=== PATIENT | male | born 1940 | race Caucasian/White ===

== ENCOUNTER 2019-09-16 11:12 | Observation (INO) ==
[2019-09-16] MEDS ORDERED: IOPAMIDOL 100 ML BOTTLE IV ONE (11:13)
[2019-09-16 11:26] LABS: POC Pro Time 11.5 sec (11.9-14.5)
[2019-09-16 11:27] LABS: POC Blood Urea Nitrogen 15 mg/dl (8-23); POC CO2 26 mmol/L (22-30); POC Calcium, Ionized 1.11 mmol/L (1.16-1.32); POC Chloride 104 mmol/L (96-108); POC Creatinine 0.8 mg/dl (0.7-1.2); POC Glucose, Random 117 mg/dL (70-105); POC Potassium 5.1 mmol/L (3.3-5.1); POC Sodium 141 mmol/L (133-145)
--- NOTE | 2019-09-16 11:41 | Cat Scan Report ---
CLINICAL INFORMATION: Code stroke COMPARISON: 05/08/2017 TECHNIQUE: 2.5 mm helical slices were obtained in the skull base to vertex. Following reconstruction, axial reformatted images were reviewed at bone and parenchymal windows. The exam was performed using radiation dose optimization techniques including, but not limited to, automated exposure control, adjustment of the mA and/or kV according to patient size and use of iterative reconstruction technique. FINDINGS: The ventricles, sulci, fissures, and cisterns are symmetrically enlarged compatible with mild age-related atrophy - no subdural hemorrhage or extra-axial fluid collection appreciated. Mild patchy chronic ischemic changes in the deep cerebral white matter, expected for age, are unchanged. A 6 mm remote lacunar infarct in the left superior cerebellum is again noted. There is no edema, hemorrhage or mass effect. Partial left mastoidectomy with cochlear implant electrode wires and battery pack over the left parietal calvaria appreciated no complication from surgery. IMPRESSION: Mild atrophy with chronic ischemic change in the deep cerebral white matter expected for age. 6 mm remote lacunar infarct left cerebellum seen - as before. There is no intracerebral hemorrhage, mass effect edema or other acute finding Interpreted and Authenticated by: Cristi Dorsey 09/16/19
[2019-09-16 12:07] LABS: Basophils # (Auto) 0.03 K/mcL (0.00-0.30); Basophils % (Auto) 0.6 % (0.0-2.0); Eosinophils # (Auto) 0.08 K/mcL (0.00-0.70); Eosinophils % (Auto) 1.6 % (0.0-7.0); Hematocrit 43.7 % (40.1-51.0); Hemoglobin 14.5 g/dL (13.7-17.5); Lymphocytes # (Auto) 1.61 K/mcL (1.50-4.80); Lymphocytes % (Auto) 32.2 % (15.5-49.0); Mean Cell Volume 86.5 fL (80.0-100.0); Mean Corpuscular HGB Conc 33.2 g/dL (31.0-36.0); Mean Platelet Volume 11.3 fL (7.4-10.4); Monocytes # (Auto) 0.33 K/mcL (0.10-0.90); Monocytes % (Auto) 6.6 % (1.0-12.0); Platelet Count 218 K/mcL (140-440); RBC 5.05 M/mcL (4.63-6.08); Red Cell Distribution Width 13.3 % (11.5-14.5)
--- NOTE | 2019-09-16 12:10 | Cat Scan Report ---
CLINICAL INFORMATION: Code stroke COMPARISON: None. TECHNIQUE: 80 cc of Isovue-370 were injected intravenously , and using SmartPrep to maximize cerebral arterial opacification, 0.625 mm helical slices were obtained from the skull base through the cerebral vertex. Following reconstruction , sagittal, coronal and axial reformatted images were processed and reviewed at multiple windows and levels. 3D volume rendered and MIP images were acquired at a independent workstation. The exam was performed using radiation dose optimization techniques including, but not limited to, automated exposure control, adjustment of the mA and/or kV according to patient size and use of iterative reconstruction technique. FINDINGS: The intracranial internal carotid, anterior and middle cerebral, intracranial vertebral, basilar both posterior cerebral arteries are well opacified and normal in contour and caliber. Superficial and deep cerebral veins and deep venous sinuses are patent. IMPRESSION: Normal Interpreted and Authenticated by: Cristi Dorsey 09/16/19
--- NOTE | 2019-09-16 12:15 | Emergency Department Note ---
Neuro HPI - General Chief Complaint: Stroke Symptoms Stated Complaint: stroke like symptoms Time Seen by Provider: 09/16/19 11:24 Source: family Mode of arrival: ambulatory Limitations: altered mental status - History of Present Illness HPI Narrative: This 79-year-old gentleman comes emergency room brought by his who reports that she met him at 11:00 at [facility] and he seemed confused not able to speak normally and seemed quite off. She had last seen him at the [facility] 12 noon yesterday. Patient went to the home of his son and [id number] and was there and seemed normal as late as 7:30 PM at which time I believe the son-in-law and [id number] went to bed. Patient got up this morning and somehow managed to drive himself to [facility] where he met his . This arrangement had been made via or through the [id number] last evening at 7:30 PM. Patient has a cochlear implant and according to it has been working and working quite well although she indicates that he does sometimes want to read lips. She reports that he seemed to ambulate well and fine. Later information was added patient's son or [id number] had last seen him at 7:30 PM and he was fine then. Even later information, may be 12:30 PM, information added that patient had been seen by a local friend with [id number]-cl-[id number] contact between 9 AM and 10:30 AM this morning. He was reported as completely normal then. On Anticoagulants: No - Related Data Home Medications: Home Medications Medication Instructions Recorded Confirmed ascorbic acid (vitamin C) 1,000 mg 1 g PO QDAY tab 11/06/17 09/16/19 tablet calcium carbonate 600 mg calcium 1,200 mg PO BID tab 11/06/17 09/16/19 (1,500 mg) tablet cholecalciferol (vitamin D3) 50 2,000 unit PO DAILY cap 11/06/17 09/16/19 mcg (2,000 unit) capsule acetaminophen 325 mg tablet See Rx Instructions PO .COMPLEX PRN 07/01/18 09/16/19 omega-3 fatty acids 1,000 mg 1,000 mg PO Q2D cap 07/01/18 09/16/19 capsule Simvastatin 10 mg PO QHS 09/16/19 09/16/19 Previous Rx's Medication Instructions Recorded omeprazole 20 mg tablet,delayed 20 mg PO QDAY #7 tab 08/04/19 release diclofenac sodium 1 % topical gel 2 g TOPICAL QID PRN #100 g 08/09/19 tamsulosin 0.4 mg capsule 0.4 mg PO HS #90 cap 09/14/19 Allergies/Adverse Reactions: Allergies Allergy/AdvReac Type Severity Reaction Status Date / Time Sulfa (Sulfonamide Allergy Intermediate Hives Verified 08/09/19 09:48 Antibiotics) milk Allergy Unknown Sore Verified 08/09/19 09:48 throat,tongue & lips dairy Allergy Unknown Unknown Uncoded 08/09/19 09:48 Past Medical History - Past Medical History Medical history: Reports: arthritis, hypertension, other (elevated PSA and large prostate) Surgical history ED: Reports: herniorrhaphy, knee replacement, orthopedic, other (foot), other (hydrocele) - Social History smoking status: Former smoker Physical Exam Limitations: altered mental status General appearance: alert, in no apparent distress, nontoxic Head: atraumatic, normocephalic Eye: Present: EOMI Neck: Present: trachea midline Chest: Present: symmetric chest wall rise Respiratory: Absent: respiratory distress, wheezes, stridor Cardiovascular: Present: regular rate, normal rhythm, bradycardia. Absent: systolic murmur, diastolic murmur Abdominal: Present: other (large, domed.) Extremities: Absent: pretibial edema, joint swelling Neurological: Present: alert Speech: Present: receptive aphasia, expressive aphasia Cranial nerves: EOM function (II, III, IV, ): Normal Cerebellar function: finger to nose: Normal, heel to krishna: Normal Cerebellar function: normal gait Motor strength - LUE: 4/5 Motor strength - RUE: 4/5 Motor strength - LLE: 4/5 Motor strength - RLE: 4/5 Psychiatric: Present: normal affect, normal mood Skin: Present: warm, dry Course Vital Signs Temperature 96.6 F L 09/16/19 11:13 Pulse Rate 56 L 09/16/19 11:13 Respiratory Rate 18 09/16/19 11:13 Blood Pressure 156/85 09/16/19 11:13 Pulse Oximetry (%) 93 09/16/19 11:13 Temperature 96.6 F L 09/16/19 11:13 Pulse Rate 44 L 09/16/19 12:45 Respiratory Rate 17 09/16/19 12:45 Blood Pressure 159/73 09/16/19 12:16 Pulse Oximetry (%) 97 09/16/19 12:45 Neuro Symptoms/Deficit - [facility] Narrative Medical decision making narrative: 11:11 AM - patient interviewed as best I was able and quickly sent to CT scan (code stroke). I spoke with his . She had last seen him at noon yesterday. Labs ordered. Will discuss with stroke neurologist. 11:24 AM - I spoke with Dr. Albert, stroke neurologist, who indicates that with the information at that time, no TPA indicated and recommended that the CT angiogram. He will review the CT of the head. 11:38 AM - CT report negative. 11:34 AM - EKGs demonstrates bradycardia with possible left axis deviation or borderline, sinus rhythm. Some mild inferior flattening/inversion. 12:15 PM - Dr. Albert also calls and reports that on the CT angio he is unable to find any large vessel occlusion. There may be some narrowing in a right branch off the MCA. He recommends aspirin, statin, admission for monitoring and echocardiogram and consider a monitor for 2 to 4 weeks and an MRI of the brain. Patient is not a candidate for an MRI because of his cochlear implant. If he is found to have atrial fibrillation he does not need a heart monitor long-term. He also recommends changing his anti-inflammatory to aspirin, reviewed his blood pressures, and request follow-up if the official report from the radiologist has other important findings. 12:50 PM - ABCD 2 score is 5 based on age, blood pressure, speech disturbance, duration a little over 60 minutes (2 points), and no hx of DM. With recommendation to be admitted, monitored, he finally agrees. Patient's again reports that he sometimes takes lisinopril. In the past did cause some hypotension and then lately he has been taking it every other day. He is not certain when he last took it it might of been this morning. At this point in time patient is interactive, speaking in full sentences easily and well and seems to understand everything that is said. He does not have a clear memory of his behavior when he arrived. He does not remember having difficulties speaking. He is able to hear easily and well but with mildly loud voice on the side of his cochlear implant (left). Discussion of his CODE STATUS concludes to be a full code but with time limited considerations. He has a directive to physicians or end-of-life document that includes not wishing to have prolonging measures. This is not currently available. 1:33 PM - spoke with hospitalist. Data reviewed. I will review with the stroke neurologist the CT angios of the neck that shows an ulcerated plaque. 1:39 PM - I spoke with Dr. Vanegas, who indicates that in light of not being able to do the MRI a CT scan is not really necessary since it would not change and is not clinically indicated. He recommends high-dose statin, aspirin but the dose could be variable depending on which literature 1 believes and, have him stop his ibuprofen, do the monitoring for cardiac dysrhythmia as a source, and ultrasound of the heart. 1:45 PM - I spoke with hospitalist, Dr. Edgar Smith, who is willing to accept this patient. Also of note is patient's bradycardia which information was texted to the hospitalist. - Lab Data Result diagrams: 09/16/19 11:16 09/16/19 11:16 Lab Results 09/16/19 09/16/19 09/16/19 Range/Units 11:16 11:16 11:16 WBC 5.0 (4.50-11.00) K/mcL RBC 5.05 (4.63-6.08) M/mcL Hgb 14.5 (13.7-17.5) g/dL Hct 43.7 (40.1-51.0) % POC Hct 45.0 (41.0-55.0) % MCV 86.5 (80.0-100.0) fL MCH 28.7 (26.0-34.0) pg MCHC 33.2 (31.0-36.0) g/dL RDW 13.3 (11.5-14.5) % Plt Count 218 (140-440) K/mcL MPV 11.3 H (7.4-10.4) fL Gran % 59.0 (38.0-78.0) % Lymph % (Auto) 32.2 (15.5-49.0) % Baxter % (Auto) 6.6 (1.0-12.0) % Eos % (Auto) 1.6 (0.0-7.0) % Baso % (Auto) 0.6 (0.0-2.0) % Gran # 2.95 (1.80-8.00) K/mcL Lymph # (Auto) 1.61 (1.50-4.80) K/mcL Baxter # (Auto) 0.33 (0.10-0.90) K/mcL Eos # (Auto) 0.08 (0.00-0.70) K/mcL Baso # (Auto) 0.03 (0.00-0.30) K/mcL POC PT 11.5 L (11.9-14.5) sec POC INR 1.0 (0.9-1.2) APTT TNP POC Sodium 141 (133-145) mmol/L Sodium TNP POC Potassium 5.1 (3.3-5.1) mmol/L Potassium TNP POC Chloride 104 (96-108) mmol/L Chloride TNP Carbon Dioxide TNP POC Total CO2 26 (22-30) mmol/L Anion Gap TNP POC BUN 15 (8-23) mg/dl BUN TNP Creatinine TNP POC Creatinine 0.8 (0.7-1.2) mg/dl GFR Calculation TNP Glucose TNP POC Glucose 117 H (70-105) mg/dL Calcium TNP POC WB Ioniz Calcium 1.11 L (1.16-1.32) mmol/L Total Bilirubin TNP AST TNP ALT TNP Alkaline Phosphatase TNP Troponin T Total Protein TNP Albumin TNP Globulin TNP Albumin/Globulin Ratio TNP 09/16/19 09/16/19 Range/Units 11:16 12:29 WBC (4.50-11.00) K/mcL RBC (4.63-6.08) M/mcL Hgb (13.7-17.5) g/dL Hct (40.1-51.0) % POC Hct (41.0-55.0) % MCV (80.0-100.0) fL MCH (26.0-34.0) pg MCHC (31.0-36.0) g/dL RDW (11.5-14.5) % Plt Count (140-440) K/mcL MPV (7.4-10.4) fL Gran % (38.0-78.0) % Lymph % (Auto) (15.5-49.0) % Baxter % (Auto) (1.0-12.0) % Eos % (Auto) (0.0-7.0) % Baso % (Auto) (0.0-2.0) % Gran # (1.80-8.00) K/mcL Lymph # (Auto) (1.50-4.80) K/mcL Baxter # (Auto) (0.10-0.90) K/mcL Eos # (Auto) (0.00-0.70) K/mcL Baso # (Auto) (0.00-0.30) K/mcL POC PT (11.9-14.5) sec POC INR (0.9-1.2) APTT 26 POC Sodium (133-145) mmol/L Sodium POC Potassium (3.3-5.1) mmol/L Potassium POC Chloride (96-108) mmol/L Chloride Carbon Dioxide POC Total CO2 (22-30) mmol/L Anion Gap POC BUN (8-23) mg/dl BUN Creatinine POC Creatinine (0.7-1.2) mg/dl GFR Calculation Glucose POC Glucose (70-105) mg/dL Calcium POC WB Ioniz Calcium (1.16-1.32) mmol/L Total Bilirubin AST ALT Alkaline Phosphatase Troponin T TNP Total Protein Albumin Globulin Albumin/Globulin Ratio Disposition Pt seen by [facility] [facility]/PA only: No Clinical Impression: TIA (transient ischemic attack), Bradycardia, 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
--- NOTE | 2019-09-16 12:21 | Cat Scan Report ---
CLINICAL INFORMATION: Code stroke COMPARISON: None. TECHNIQUE: 80 cc of Isovue-370 were injected intravenously, and using SmartPrep to maximize arterial opacification, 0.625 mm helical slices were obtained from the thoracic aortic arch through the alutiiq of Alas. Following reconstruction, 2.5mm sagittal, coronal and axial reformatted images were processed and reviewed at standard and bone algorithm/window. 3-D volume rendered, CPR and MIP images were processed using a [employer] work station.The exam was performed using radiation dose optimization techniques including, but not limited to, automated exposure control, adjustment of the mA and/or kV according to patient size and use of iterative reconstruction technique. FINDINGS: The thoracic aorta arch is normal diameter with diffuse intimal thickening. Thoracic aortic branching is conventional. The brachiocephalic, both common and external carotid, both vertebral and subclavian arteries are widely patent. Mild fibrofatty plaque in both proximal internal carotid arteries result in minimal stenoses - less than 50% bilaterally. On the left side, there appears to be an ulcerated plaque which may focus of the nidus for distal embolization. Multinodular adenoma noted - thyroid goiter. No other soft tissue abnormality. C5-6 moderate broad disc spur complex results in moderate central canal and bilateral lateral recess narrowing impinging exiting C6 nerve roots. IMPRESSION: 1. Fibrofatty plaque in both proximal internal carotid arteries resulting in mild (less than 50%) stenoses. On the left, there is an ulcerated plaque which can serve as a nidus for distal cerebral artery embolization. 2. C5-6: Moderate broad disc spur complex resulting in moderate central canal and bilateral lateral recess narrowing impinging exiting C6 nerve roots. 3. Multinodular adenomatous thyroid goiter6 Interpreted and Authenticated by: Cristi Dorsey 09/16/19
[2019-09-16 13:29] LABS: ALT/SGPT 17 U/l (0-40); AST/SGOT 15 U/l (0-37); Albumin 3.8 gm/dL (3.2-5.2); Albumin/Globulin Ratio 1.5 (1.0-2.3); Alkaline Phosphatase 53 U/L (39-117); Bilirubin,Total 0.4 mg/dL (0.0-1.0); Blood Urea Nitrogen 10 mg/dl (8-23); Calcium 8.5 mg/dl (8.6-10.4); Carbon Dioxide 23 mmol/L (22-30); Chloride 103 mmol/L (96-108); Globulin 2.6 gm/dL (2.2-3.7); Glomerular Filtration Rate 82; Glucose 109 mg/dL (70-105)
[2019-09-16] MEDS ORDERED: ASPIRIN 325 MG ENTERIC COATED TABLET PO ONE (13:37)
[2019-09-16 14:19] LABS: Appearance,Urine CLEAR; Bilirubin,Urine NEG (NEG); Color,Urine YELLOW; Culture Indicated,Urine NO; Glucose,Urine (UA) NEGATIVE (NEG); Ketones,Urine NEG (NEG); Leukocyte Esterase,Urine NEG /uL (NEG); Nitrate,Urine NEG (NEG); Protein,Urine NEG (NEG); Specific Gravity,Urine 1.058 (1.000-1.035); Urine Blood NEG mg/dL (<0.03); Urobilinogen,Urine NEG (NEG)
--- NOTE | 2019-09-16 14:30 | Internal Med History&Physical ---
Medical - H&P: HPI Patient information: Note initiated : 09/16/19 at 2:26 pm Service Date, if different from initiated Date: [] Patient: Anjel Wallace 79 y/o M admitted on for stroke like symptoms. Chief Complaint: [] History of present illness: Mr. Wallace is a 79 year old M Patient presents to the ED for altered mental status/confusion. Patient was found by spouse to be confused and not able to speak normally when she met him in the parking lot of a grocery store. Last seen normal last night. Apparently drove himself to [employer] and he was to meet his and when she found about 20 she noted the symptoms. He knows that he had difficulty expressing himself at times. Patient does not particular he felt like he had speech difficulties. Symptoms lasted for an hour or so. 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 This was discussed with stroke neurologist who just recommended usual care including echo high dose statin 80 Lipitor and aspirin. Mentioned MRI but unable to do as patient has a cochlear implant. Symptoms have since resolved. EKG shows sinus bradycardia at 51. Blood pressure systolic in the 150s when arrived. Laboratory unremarkable. Does take lisinopril at home but is been taking it every other day as a says drops of blood pressure too low. Denies any numbness tingling focal weakness swallowing difficulty with vision changes. Review of Systems: Pertinent positives as above. Denies headache/fever/chills/nausea/vomiting/chest or abdominal pain/cough/d yspnea/diarrhea. Many 10 point review of system reviewed negative Medical - H&P: PMH Medical history: Medical History (Last Updated 09/16/19 @ 11:41 by Ronal Aguero DO) Hyperlipidemia (Chronic) Hypertension, essential (Chronic) Obesity (Chronic) GERD (gastroesophageal reflux disease) (Chronic) Kidney stones (Chronic) Peripheral neuropathy (Chronic) DJD (degenerative joint disease), multiple sites (Chronic ~2007) Depression (Chronic) Erectile dysfunction (Chronic) BPH w/o urinary obs/LUTS (Chronic) Unspecified corneal scar and opacity (Chronic) Age-related cataract of both eyes (Chronic) Drusen (degenerative) of macula, bilateral (Chronic) Encephalocele (Chronic) Sensorineural hearing loss, bilateral (Chronic) Hearing loss (Chronic) Degenerative joint disease (Chronic) Elevated prostate specific antigen (PSA) (Chronic) History of smokeless tobacco use (Chronic) History of tobacco use (Chronic) Neuropathy (Chronic) Sciatica (Chronic) Prostate hypertrophy (Chronic) Hydrocele, bilateral (Chronic) Acid reflux (Inactive) Acute conjunctivitis, bilateral (Inactive) Acute retention of urine (Inactive) Bilateral knee pain (Inactive) Corns and callosities (Inactive) Dyslipidemia (Inactive) Easy bruising (Inactive) Encounter for pre-operative examination (Inactive) Encounter for removal of sutures (Inactive) Gross hematuria (Inactive) Heartburn (Inactive) Hematuria (Inactive) High cholesterol (Inactive) Hydrocele (Inactive) Joint pain (Inactive ~1966) Keratosis, seborrheic (Inactive) Sneezing (Inactive) Special screening for malignant neoplasm of prostate (Inactive) Urinary tract infection (Inactive) Past Surgical History (Last Reviewed 08/09/19 @ 09:52 by Leanne Morrell PA-C) H/O colonoscopy (Chronic) H/O vasectomy (Chronic) History of bilateral mastoidectomy (Chronic) History of cholecystectomy (Chronic) History of cochlear implant (Chronic) History of esophagogastroduodenoscopy (EGD) (Chronic) History of right knee joint replacement (Chronic) History of umbilical hernia repair (Chronic) S/P repair of hydrocele (Chronic) Status post excision of lipoma (Chronic) Family History (Last Reviewed 08/09/19 @ 09:52 by Leanne Moise PA-C) Father Alzheimers disease Social History (Last Updated 08/09/19 @ 10:46 by Leanne Moise PA-C) quit smoking a few months ago Couple drinks of alcohol per week Lives at home with his Medical - H&P: Meds Home Medications Medication Instructions Recorded Confirmed Type ascorbic acid (vitamin C) 1,000 mg 1 g PO QDAY tab 11/06/17 09/16/19 History tablet calcium carbonate 600 mg calcium 1,200 mg PO BID tab 11/06/17 09/16/19 History (1,500 mg) tablet cholecalciferol (vitamin D3) 50 2,000 unit PO DAILY cap 11/06/17 09/16/19 History mcg (2,000 unit) capsule acetaminophen 325 mg tablet See Rx Instructions PO .COMPLEX PRN 03/20/19 06/04/20 History omega-3 fatty acids 1,000 mg 1,000 mg PO Q2D cap 07/01/18 09/16/19 History capsule omeprazole 20 mg tablet,delayed 20 mg PO QDAY #7 tab 08/04/19 09/16/19 Rx release diclofenac sodium 1 % topical gel 2 g TOPICAL QID PRN #100 g 08/09/19 09/16/19 Rx tamsulosin 0.4 mg capsule 0.4 mg PO HS #90 cap 09/14/19 09/16/19 Rx Simvastatin 10 mg PO QHS 09/16/19 09/16/19 History Allergies Allergy/AdvReac Type Severity Reaction Status Date / Time Sulfa (Sulfonamide Allergy Intermediate Hives Verified 08/09/19 09:48 Antibiotics) milk Allergy Unknown Sore Verified 08/09/19 09:48 throat,tongue & lips dairy Allergy Unknown Unknown Uncoded 08/09/19 09:48 Medical - H&P: Exam - Constitutional Vitals: Temp Pulse Resp BP Pulse Ox 96.6 F L 46 L 21 152/71 94 09/16/19 11:13 09/16/19 13:45 09/16/19 13:45 09/16/19 13:31 09/16/19 13:45 Exam: General: Alert, Awake, No acute Distress Eyes/N/T: EOMI, PERRL, Head/Neck: neck supple, normocephalic atraumatic CV: RRR, No murmurs, normal s1/s2 Pulm: Clear b/l, no wheezing/rhonchi/rales Abd: soft, nontender, +BS x4 Ext: no clubbing/cyanosis, 1 b/l LE edema Neuro: Alert, no focal deficits, moves all extremities, CN 2-12 grossly intact, symmetrical strength b/l upper/lower, sensations intact b/l upper/lower, no pronator drift, symmetrical face, clear speech Skin: warm/dry Medical - H&P: Reslt - Labs CBC & Chem 7: 09/16/19 11:16 09/16/19 12:29 Labs: Short CBC 09/16/19 Range/Units 11:16 WBC 5.0 (4.50-11.00) K/mcL Hgb 14.5 (13.7-17.5) g/dL Hct 43.7 (40.1-51.0) % Plt Count 218 (140-440) K/mcL BMP 09/16/19 09/16/19 11:16 12:29 Sodium TNP 138 Potassium TNP 4.0 Chloride TNP 103 Carbon Dioxide TNP 23 BUN TNP 10 Creatinine TNP 0.9 Glucose TNP 109 H Calcium TNP 8.5 L Cardiac Enzymes 09/16/19 09/16/19 Range/Units 11:16 12:29 Troponin T TNP < 0.01 Liver Function 09/16/19 09/16/19 Range/Units 11:16 12:29 Total Bilirubin TNP 0.4 AST TNP 15 ALT TNP 17 Alkaline Phosphatase TNP 53 Albumin TNP 3.8 Urine 09/16/19 Range/Units 13:20 Urine Color Yellow Urine Appearance Clear Urine pH 6.0 (5.0-9.0) Ur Specific [place] 1.058 H (1.000-1.035) Urine Protein Neg (NEG) mg/dL Urine Glucose (UA) Negative (NEG) mg/dL Medical - H&P: A/P - Narrative A/P Narrative: A: *TIA (confusion/word finding difficulties): -ABCD=4-5 -CTA head/neck no acute path or significant stenosis *HTN: is taking lisinopril qod *HLD: on low dose statin currently *GERD * P: -IVF -ASA/high-dose statin -echo -tele monitoring -pt/ot -ppx: lovenox/home ppi full code Medical - H&P: Qual - Stroke Onset of Symptoms Date: 09/15/19 Onset of Symptoms Time: 19:30 Symptom Onset Unknown: No
[2019-09-16] MEDS ORDERED: ACETAMINOPHEN 325 MG TABLET PO PRN (15:30)
[2019-09-16] MEDS ORDERED: ONDANSETRON 4 MG/2 ML VIAL IV PRN (15:30)
[2019-09-16] MEDS ORDERED: SENNOSIDES 1 TABLET PO PRN (15:30)
[2019-09-16] MEDS ORDERED: 0.9 % SODIUM CHLORIDE 1,000 ML IV SCH (15:30)
[2019-09-16] MEDS ORDERED: hydrALAZINE 20 MG/ML VIAL IV PRN (15:30)
[2019-09-16] MEDS ORDERED: POLYETHYLENE GLYCOL 3350 17 GM PACKET PO PRN (15:30)
[2019-09-16] MEDS ORDERED: MAGNESIUM SULFATE 2 GM/50 ML BAG IV PRN (15:30)
[2019-09-16] MEDS ORDERED: POTASSIUM CHLORIDE 20 MEQ TABLET PO PRN ×2 (15:30)
[2019-09-16] MEDS ORDERED: IPRATROPIUM/ALBUTEROL 3 ML AMPUL.NEB NEB PRN (15:30)
[2019-09-16] MEDS ORDERED: POTASSIUM CHLORIDE 40 MEQ in DEXTROSE 5% IN WATER 500 ML IV PRN (15:30)
[2019-09-16] MEDS ORDERED: LACTULOSE 20 GM/30 ML ORAL.SOL PO PRN (15:30)
[2019-09-16 16:03] LABS: HDL Cholesterol 46 mg/dl (>40); LDL Cholesterol,Calculated 87 mg/dl (SEE CHART); Non-HDL Cholesterol 116 (LDL TARGET+30); Triglycerides 146 mg/dl (<150)
[2019-09-16] MEDS: DOCUSATE SODIUM 100 MG CAPSULE PO SCH (20:50)
[2019-09-16] MEDS ORDERED: TAMSULOSIN 0.4 MG CAPSULE PO SCH (21:00)
[2019-09-16] MEDS ORDERED: ATORVASTATIN 40 MG TABLET PO SCH (21:00)
[2019-09-16] MEDS: 0.9 % SODIUM CHLORIDE 10 ML SYRINGE IV SCH (22:00)
[2019-09-17] MEDS: 0.9 % SODIUM CHLORIDE 10 ML SYRINGE IV SCH (05:40)
--- NOTE | 2019-09-17 07:12 | Discharge Summary ---
Medical - DS: Prov Patient information: Note initiated : 09/17/19 at 7:10 am Service Date, if different from initiated Date: [] Patient: Anjel Wallace 79 y/o M admitted on 09/16/19 for stroke like symptoms. Chief Complaint: [] Date of admission: 09/16/19 15:13 Discharge date: 09/17/19 Primary care physician: Leanne Moise PA-C Consults: 09/16/19 Consult to Physician [CONS] Stat Comment: Consulting Provider: Edgar Smith Reason For Exam: Physician to Consult 09/16/19 11:24 Consult to Physician [CONS] Stat Comment: Consulting Provider: Telestroke,Provider Reason For Exam: Physician to Consult Medical - DS: Meds - Discharge Medications Prescriptions: Aspirin 81 mg PO DAILY #30 tab.chew Transmission Status: Received by Third Age 35 Atorvastatin [Lipitor] 80 mg PO HS #60 tab Transmission Status: Received by Third Age 35 Active and Home Medications: Home Medications ascorbic acid (vitamin C) 1,000 mg tablet 1 g PO QDAY tab 11/06/17 [History Confirmed 09/16/19 Last Taken Unknown] calcium carbonate 600 mg calcium (1,500 mg) tablet 1,200 mg PO BID tab 11/06/17 [History Confirmed 09/16/19 Last Taken Unknown] cholecalciferol (vitamin D3) 50 mcg (2,000 unit) capsule 2,000 unit PO DAILY cap 11/06/17 [History Confirmed 09/16/19 Last Taken Unknown] acetaminophen 325 mg tablet See Rx Instructions PO .COMPLEX PRN 07/01/18 [History Confirmed 09/16/19 Last Taken Unknown] omega-3 fatty acids 1,000 mg capsule 1,000 mg PO Q2D cap 07/01/18 [History Confirmed 09/16/19 Last Taken Unknown] omeprazole 20 mg tablet,delayed release 20 mg PO QDAY #7 tab 08/04/19 [Rx Confirmed 09/16/19 Last Taken Unknown] diclofenac sodium 1 % topical gel 2 g TOPICAL QID PRN #100 g 08/09/19 [Rx Confirmed 09/16/19 Last Taken Unknown] tamsulosin 0.4 mg capsule 0.4 mg PO HS #90 cap 09/14/19 [Rx Confirmed 09/16/19 Last Taken Unknown] Simvastatin 10 mg PO QHS 09/16/19 [History Confirmed 09/16/19 Last Taken Unknown] Home Medications ascorbic acid (vitamin C) 1,000 mg tablet 1 g PO QDAY tab 11/06/17 [History Confirmed 09/16/19 Last Taken Unknown] calcium carbonate 600 mg calcium (1,500 mg) tablet 1,200 mg PO BID tab 11/06/17 [History Confirmed 09/16/19 Last Taken Unknown] cholecalciferol (vitamin D3) 50 mcg (2,000 unit) capsule 2,000 unit PO DAILY cap 11/06/17 [History Confirmed 09/16/19 Last Taken Unknown] acetaminophen 325 mg tablet See Rx Instructions PO .COMPLEX PRN 07/01/18 [History Confirmed 09/16/19 Last Taken Unknown] omega-3 fatty acids 1,000 mg capsule 1,000 mg PO Q2D cap 07/01/18 [History Confirmed 09/16/19 Last Taken Unknown] omeprazole 20 mg tablet,delayed release 20 mg PO QDAY #7 tab 08/04/19 [Rx Confirmed 09/16/19 Last Taken Unknown] diclofenac sodium 1 % topical gel 2 g TOPICAL QID PRN #100 g 08/09/19 [Rx Confirmed 09/16/19 Last Taken Unknown] tamsulosin 0.4 mg capsule 0.4 mg PO HS #90 cap 09/14/19 [Rx Confirmed 09/16/19 Last Taken Unknown] Aspirin 81 mg PO DAILY #30 tab.chew 09/17/19 [Rx Last Taken Unknown] Atorvastatin [Lipitor] 80 mg PO HS #60 tab 09/17/19 [Rx Last Taken Unknown] Medical - DS: Hosp Hospital Course: Mr. Wallace is a 79 year old M Patient presents to the ED for altered mental status/confusion. Patient was found by spouse to be confused and not able to speak normally when she met him in the parking lot of a grocery store. Last seen normal last night. Apparently drove himself to [employer] and he was to meet his and when she found about 20 she noted the symptoms. He knows that he had difficulty expressing himself at times. Patient does not particular he felt like he had speech difficulties. Symptoms lasted for an hour or so. 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 This was discussed with stroke neurologist who just recommended usual care including echo high dose statin 80 Lipitor and aspirin. Mentioned MRI but unable to do as patient has a cochlear implant. Symptoms have since resolved. EKG shows sinus bradycardia at 51. Blood pressure systolic in the 150s when arrived. Laboratory unremarkable. Does take lisinopril at home but is been taking it every other day as a says drops of blood pressure too low. 6/5 Doing well no new complaints. No neurological deficits. Awaiting echo report. A: *TIA (confusion/word finding difficulties) resolved shortly after arrival to ED: -ABCD=4-5 -CTA head/neck no acute path or significant stenosis *HTN: is taking lisinopril qod *HLD: on low dose statin currently *GERD * Discharge diagnosis: TIA Secondary discharge diagnosis: Hypertension hyperlipidemia GERD - Time Spent with Patient Total time spent providing and/or coordinating discharge services: Greater than 30 minutes Medical - DS: Exam - Constitutional Vitals: Vital Signs Temp Pulse Resp BP Pulse Ox 09/17/19 06:01 15 152/77 99 09/17/19 05:42 15 96 09/17/19 05:01 14 136/56 97 09/17/19 04:01 10 L 116/56 97 09/17/19 03:01 14 141/62 95 09/17/19 02:01 17 136/70 95 09/17/19 02:00 98 09/17/19 01:01 17 145/72 96 09/17/19 00:56 18 94 09/17/19 00:01 99.0 F 15 138/66 97 09/16/19 23:01 18 123/63 94 09/16/19 22:01 18 130/72 94 09/16/19 21:02 18 148/114 94 09/16/19 20:01 98.6 F 15 116/56 95 09/16/19 20:00 95 09/16/19 19:07 15 130/65 98 09/16/19 18:01 18 140/75 94 09/16/19 16:02 97.6 F 15 131/73 94 09/16/19 15:37 97.9 F 19 145/76 94 09/16/19 15:28 98.4 F 16 145/76 95 09/16/19 15:12 55 L 18 97 09/16/19 15:01 56 L 19 130/68 97 09/16/19 14:31 51 L 17 142/65 96 09/16/19 14:02 53 L 17 185/82 97 09/16/19 13:45 46 L 21 94 09/16/19 13:31 43 L 17 152/71 97 09/16/19 13:24 44 L 176/64 97 09/16/19 13:01 42 L 18 177/87 94 09/16/19 12:45 44 L 17 97 09/16/19 12:27 46 L 20 96 09/16/19 12:16 47 L 14 159/73 95 09/16/19 12:03 49 L 18 149/77 95 09/16/19 12:01 49 L 16 149/77 92 09/16/19 11:55 49 L 19 165/82 94 09/16/19 11:37 20 156/85 09/16/19 11:20 156/85 09/16/19 11:13 96.6 F L 56 L 18 156/85 93 Intake and Output 09/16/19 09/17/19 09/17/19 21:59 05:59 13:59 Intake Total 240 240 Output Total 825 500 300 Balance -585 -260 -300 Intake: Oral 240 240 Output: Void Amount 825 500 300 Other: Meal Dinner Percent of Meal Consumed 100% Feeding Ability Independent Urine Appearance Clear Clear Urine Color Bright Yellow Dark Yellow Urine Odor Normal Weight 107.002 kg Medical - DS: Data Labs on day of discharge: Labs from last 24 hours 09/16/19 09/16/19 09/16/19 13:20 12:29 12:29 WBC RBC Hgb Hct POC Hct MCV MCH MCHC RDW Plt Count MPV Gran % Lymph % (Auto) Luna % (Auto) Eos % (Auto) Baso % (Auto) Gran # Lymph # (Auto) Luna # (Auto) Eos # (Auto) Baso # (Auto) POC PT POC INR APTT POC Sodium Sodium POC Potassium Potassium POC Chloride Chloride Carbon Dioxide POC Total CO2 Anion Gap POC BUN BUN Creatinine POC Creatinine GFR Calculation Glucose POC Glucose Calcium POC WB Ioniz Calcium Total Bilirubin AST ALT Alkaline Phosphatase Troponin T < 0.01 Total Protein Albumin Globulin Albumin/Globulin Ratio Triglycerides 146 Cholesterol 162 LDL Cholesterol, Calc 87 Non-HDL Cholesterol 116 HDL Cholesterol 46 Urine Color Yellow Urine Appearance Clear Urine pH 6.0 Ur Specific [place] 1.058 H Urine Protein Neg Urine Glucose (UA) Negative Urine Ketones Neg Urine Occult Blood Neg Urine Nitrate Neg Urine Bilirubin Neg Urine Urobilinogen Neg Ur Leukocyte Esterase Neg Ur Culture Indicated? No 09/16/19 09/16/19 09/16/19 12:29 12:29 11:16 WBC RBC Hgb Hct POC Hct MCV MCH MCHC RDW Plt Count MPV Gran % Lymph % (Auto) Luna % (Auto) Eos % (Auto) Baso % (Auto) Gran # Lymph # (Auto) Luna # (Auto) Eos # (Auto) Baso # (Auto) POC PT POC INR APTT 26 POC Sodium Sodium 138 POC Potassium Potassium 4.0 POC Chloride Chloride 103 Carbon Dioxide 23 POC Total CO2 Anion Gap 12.0 POC BUN BUN 10 Creatinine 0.9 POC Creatinine GFR Calculation 82 Glucose 109 H POC Glucose Calcium 8.5 L POC WB Ioniz Calcium Total Bilirubin 0.4 AST 15 ALT 17 Alkaline Phosphatase 53 Troponin T TNP Total Protein 6.4 Albumin 3.8 Globulin 2.6 Albumin/Globulin Ratio 1.5 Triglycerides Cholesterol LDL Cholesterol, Calc Non-HDL Cholesterol HDL Cholesterol Urine Color Urine Appearance Urine pH Ur Specific [place] Urine Protein Urine Glucose (UA) Urine Ketones Urine Occult Blood Urine Nitrate Urine Bilirubin Urine Urobilinogen Ur Leukocyte Esterase Ur Culture Indicated? 09/16/19 09/16/19 09/16/19 11:16 11:16 11:16 WBC 5.0 RBC 5.05 Hgb 14.5 Hct 43.7 POC Hct 45.0 MCV 86.5 MCH 28.7 MCHC 33.2 RDW 13.3 Plt Count 218 MPV 11.3 H Gran % 59.0 Lymph % (Auto) 32.2 Luna % (Auto) 6.6 Eos % (Auto) 1.6 Baso % (Auto) 0.6 Gran # 2.95 Lymph # (Auto) 1.61 Luna # (Auto) 0.33 Eos # (Auto) 0.08 Baso # (Auto) 0.03 POC PT 11.5 L POC INR 1.0 APTT TNP POC Sodium 141 Sodium TNP POC Potassium 5.1 Potassium TNP POC Chloride 104 Chloride TNP Carbon Dioxide TNP POC Total CO2 26 Anion Gap TNP POC BUN 15 BUN TNP Creatinine TNP POC Creatinine 0.8 GFR Calculation TNP Glucose TNP POC Glucose 117 H Calcium TNP POC WB Ioniz Calcium 1.11 L Total Bilirubin TNP AST TNP ALT TNP Alkaline Phosphatase TNP Troponin T Total Protein TNP Albumin TNP Globulin TNP Albumin/Globulin Ratio TNP Triglycerides Cholesterol LDL Cholesterol, Calc Non-HDL Cholesterol HDL Cholesterol Urine Color Urine Appearance Urine pH Ur Specific [place] Urine Protein Urine Glucose (UA) Urine Ketones Urine Occult Blood Urine Nitrate Urine Bilirubin Urine Urobilinogen Ur Leukocyte Esterase Ur Culture Indicated? Medical - DS: A/P - Patient/Caregiver Discharge Instructions Activity: increase activity as tolerated Diet: Regular Diet Prescriptions: Aspirin 81 mg PO DAILY #30 tab.chew Transmission Status: Received by Third Age 35 Atorvastatin [Lipitor] 80 mg PO HS #60 tab Transmission Status: Received by Third Age 35 - Follow up Plan Follow up with: Leanne Moise PA-C [Primary Care Provider] - Disposition: Home, Self-Care Prognosis: Fair Rehab Potential: Fair Overall status at discharge: patient is back to baseline Medical - DS: Qual - VTE Deep Vein Thrombosis/Pulmonary Embolism Present on Admission: No
[2019-09-17] MEDS ORDERED: PANTOPRAZOLE 40 MG TABLET PO SCH (07:30)
[2019-09-17] MEDS ORDERED: ENOXAPARIN 40 MG/0.4 ML SYRINGE SQ SCH (09:00)
[2019-09-17] MEDS ORDERED: ASPIRIN 81 MG TAB.CHEW PO SCH (09:00)
[2019-09-17] MEDS ORDERED: LISINOPRIL 5 MG TABLET PO ONE (11:14)
[2019-09-17] MEDS: DOCUSATE SODIUM 100 MG CAPSULE PO SCH (11:21)
== END 2019-09-17 12:04 | disposition home or self-care (01) ==
LOC: ICU 11:12 → ED 11:12 → ICU 13:13
PROVIDERS: ADMIT Internal Medicine; ATTEND Internal Medicine